=== PATIENT | male | born 1950 | race Caucasian/White ===

== ENCOUNTER 2016-09-15 20:44 | Inpatient (IN) ==
[2016-09-15 22:06] LABS: INR 1.1; Prothrombin Time 11.7 Seconds (9.4-12.1)
[2016-09-15 22:09] LABS: Activated Partial Thrombo Time 25.5 Seconds (26.0-36.0)
[2016-09-15 22:11] LABS: Basophils # 0.1 K/mcL (0.0-0.2); Basophils % 0.3 %; Eosinophils # 0.1 K/mcL (0.0-0.6); Eosinophils % 0.8 %; Hematocrit 38.6 % (37.5-50.1); Hemoglobin 12.9 g/dL (12.9-16.9); Immature Granulocytes % 3.9 % (0-4); Lymphocytes # 2.3 K/mcL (0.6-4.6); Lymphocytes % 12.4 %; Mean Corpuscular HGB Conc 33.4 g/dL (31.6-35.5); Mean Corpuscular Hemoglobin 31.4 pg (28.0-33.3); Mean Corpuscular Volume 93.9 fL (83.0-100.0); Mean Platelet Volume 10.3 fL (9.4-12.4); Monocytes # 1.4 K/mcL (0.0-1.3); Monocytes % 7.3 %; Neutrophils # 13.9 K/mcL (1.6-8.9); Platelet Count 282 K/mcL (140-400); Red Blood Count 4.11 M/mcL (4.19-5.50); Red Cell Distribution Width 12.6 % (11.5-14.5); Segmented Neutrophils % 75.3 %
[2016-09-15 22:14] LABS: BUN/Creatinine Ratio 24 (6-26); Blood Urea Nitrogen 35 mg/dL (8-26); Calcium 8.5 mg/dL (8.6-10.8); Carbon Dioxide 26 mEq/L (19-29); Chloride 100 mEq/L (98-109); Glucose 91 mg/dL (70-99); Osmolality,Calculated 292 (280-300); Potassium 3.5 mEq/L (3.5-4.5); Sodium 137 mEq/L (136-145); eGFR For African Americans 60 (> 60); eGFR For Non-African Americans 49 (> 60)
[2016-09-15 22:15] LABS: Ethanol < 10 mg/dL (0-10)
[2016-09-15] MEDS ORDERED: 0.9 % Sodium Chloride 1,000 ML IVC ONE (22:43)
[2016-09-15] MEDS ORDERED: Acetaminophen 325 MG TABLET PO ONE (22:44)
[2016-09-15 23:22] LABS: Bilirubin,Urine Negative (Negative); Blood,Urine Negative (Negative); Clarity,Urine Clear (Clear); Color,Urine Yellow (Yellow); Glucose,Urine (UA) Normal (Normal); Ketones,Urine Negative (Negative); Leukocyte Esterase,Urine Negative (Negative); Nitrite,Urine Negative (Negative); Protein,Urine 30 mg/dL (Neg-Trace); Specific Gravity,Urine 1.027 (1.010-1.025); Urobilinogen,Urine Normal (Normal)
[2016-09-15 23:24] LABS: Bacteria,Urine None Seen per hpf (None-Few); Hyaline Casts,Urine None Seen per lpf (None-Few); RBC,Urine 0-3 per hpf (0-3); Squamous Epithelial Cell,Urine Moderate per lpf (None-Few); WBC,Urine 0-3 per hpf (0-3)
[2016-09-16] MEDS ORDERED: CefTRIAXone 1,000 MG VIAL ONE (01:03)
[2016-09-16] MEDS ORDERED: 0.9 % Sodium Chloride Mini Bag 100 ML ONE (01:04)
[2016-09-16] MEDS ORDERED: 0.9 % Sodium Chloride 1,000 ML ONE (01:06)
[2016-09-16] MEDS ORDERED: Azithromycin 500 MG in D5% in Water 250 ML IVPB ONE (01:57)
[2016-09-16] MEDS ORDERED: 0.9 % Sodium Chloride 1,000 ML IVC SCH (02:00)
[2016-09-16] MEDS ORDERED: D5% in Water 250 ML ONE (02:40)
[2016-09-16] MEDS ORDERED: Azithromycin 500 MG VIAL IVPB ONE (02:40)
--- NOTE | 2016-09-16 04:40 | Emergency Department Note ---
START Narrative - START START: Patient checked out at the end of shift by Dr. Christina Mesa. [facility], had [facility] to [facility] transfer center. However, the [facility] doctor just called me back and was concerned about [facility]. Thought that he should stay here where he could potentially be evaluated by neurology and/or infectious disease. Patient has a low-grade temperature elevation with a leukocytosis and concern for some mental status changes. He had complained of a headache. CT was negative. On my evaluation at 0440, he is awake with minimal to no dysarthria. Answers questions appropriately. He is oriented. Says his headache "has pretty much gone away." Neck is supple without meningismus on my exam. I spoke with our hospitalist, who is accepted for admission.
--- NOTE | 2016-09-16 08:52 | Internal Med History&Physical ---
Date of Encounter: 09/16/16 Time of Encounter: 08:50 Assessment and Plan (1) COPD exacerbation Current visit: Yes Status: Acute Give [id number] nebulizer treatments. No significant chest wheezing I would hold off steroids for now. Reportedly patient was also confused yesterday will get outside records (2) Acute bronchitis Current visit: Yes Status: Acute Still has some greenish sputum production. We would Broaden antibiotic coverage with zosyn. Check sputum culture. Will also check stool for C diff given intermittent diarrhea. Qualifiers: Qualified Code(s): J20.9 - Acute bronchitis, unspecified (3) Metabolic encephalopathy Current visit: Yes Status: Acute Reportedly patient was confused with slurred speech yesterday. He was sent from the [place] for further evaluation of his neurological status. Suspect metabolic encephalopathy which may be related to underlying bronchitis versus pneumonia or medication induced like steroids. His blood pressure currently is 160 systolic to another possibility is hypertensive encephalopathy if his blood pressure was elevated at [facility] levels [facility] the [facility]. There is no meningeal signs on my exam neck is supple. He can touch his chest with his chin. Negative Kernig's and Brud[place]nisk[place] sign. CT scan of the head was unremarkable for any intracranial pathology. Patient still has leukocytosis and fever spikes. will broaden antibiotic coverage for his acute bronchitis to cover for pseudomonas and check sputum culture. I do not feel that we need to do a lumbar puncture. We check EEG. (4) CKD (chronic kidney disease) stage 3, GFR 30-59 ml/min Current visit: Yes Status: Acute Gentle hydration. Internal Medicine - H&P: HPI Chief complaint: confusion History of present illness: Mr. Colunga is a 66 year old male with a history of COPD not on home oxygen was admitted to the [facility] for 6 days for COPD exacerbation and acute bronchitis. He has been treated with IV antibiotics. Patient continues to have fever spikes and started having episodes of confusion and slurred speech souls transfer to other facility for further evaluation. My interview with the patient today he was alert and oriented times 4. He denies any neck pain or stiffness. No photophobia. No headache. No focal weakness tingling or numbness in any extremity facial symmetry or speech slurriness. He denies alcohol intake or illicit drugs. He has been covered throughout hospitalizations with antibiotics for community acquired pneumonia and continues to have fever spikes. He continues to have a greenish sputum production. Throughout hospitalization he also had intermittent loose stools. He denies any diarrhea currently no abdominal pain. No sick contacts or recent travel. No witnessed seizure. Past Med Surg Social Fam HX - Past Medical History Medical history: COPD, diabetes, GERD, hyperlipidemia, hypertension, renal disease Psychiatric history: no psych history - Social History Smoking Status: Current some day smoker Smokeless Tobacco Status: No Alcohol use: none Drug use: none Internal Medicine - H&P: Meds Acetaminophen [Tylenol] 500 mg PO Q6HR PRN 09/16/16 [History] Albuterol Neb [Proventil Neb] 2.5 mg IH Q4HR PRN 09/16/16 [History] Albuterol Sulfate [Albuterol Inhaler] 2 puff IH Q4HR PRN 09/16/16 [History] Allopurinol [Zyloprim 100 MG] 100 mg PO DAILY 09/16/16 [History] Amlodipine Besylate 5 mg PO DAILY 09/16/16 [History] Aspirin [Lo-Dose Aspirin EC] 81 mg PO DAILY 09/16/16 [History] Atenolol 100 mg PO BID 09/16/16 [History] Atorvastatin Calcium [Lipitor] 20 mg PO DAILY 09/16/16 [History] Azithromycin [Zithromax Tri-Jens] 500 mg PO DAILY 09/16/16 [History] Capsaicin [Arthritis Pain Relief] 1 appl TP DAILY PRN 09/16/16 [History] Cefdinir [Omnicef] 300 mg PO BID 09/16/16 [History] Cholecalciferol (D-3) [Vitamin D] 5,000 unit PO DAILY 09/16/16 [History] GuaiFENesin Liq [Robitussin Liq] 200 mg PO Q6HR PRN 09/16/16 [History] Lisinopril-HCTZ 20-12.5 [Prinzide 20-12.5] 2 tab PO DAILY 09/16/16 [History] [place]-3/Dha/Epa/Fish Oil [[place] 3 500 Softgel] 1 each PO DAILY 09/16/16 [History ] Pregabalin [Lyrica] 150 mg PO BID 09/16/16 [History] Sodium Bicarbonate 325 mg PO BID 09/16/16 [History] Tiotropium [Spiriva] 18 mcg IH 0700 09/16/16 [History] Allergies No Known Allergies Allergy (Verified 09/15/16 20:53) All Systems PM: A 10-system review of systems was performed and is negative for pertinent findings except as documented above in the HPI. Review of systems: 10 point ROS is negative except for HPI - Constitutional Vitals: Temp Pulse Resp BP Pulse Ox 98.1 F 77 16 165/81 93 09/16/16 06:39 09/16/16 06:39 09/16/16 06:39 09/16/16 06:39 09/16/16 06:39 Exam: Gen.: patient is alert oriented times 4 not in distress cardiac: Normal S1, S2, no additional sounds or murmurs chest: Slightly diminished air entry. expiratory wheezing Abdomen: Soft, no tenderness. No rebound lower extremity Lax calf muscles no swelling Neuro: no focal deficits. No meningeal signs. negative kernig's and brudiszniski signs Internal Med - H&P Results - Labs CBC & Chem 7: 09/15/16 21:45 09/15/16 21:45
[2016-09-16] MEDS ORDERED: amLODIPine 5 MG TABLET PO SCH (09:00)
[2016-09-16] MEDS: Piperacillin/Tazobactam 3.375 GM in D5% in Water (Mini-Bag+) 100 ML IVPB SCH ×2 (10:28→17:19)
--- NOTE | 2016-09-16 10:36 | Neurology - Consult Note ---
<Kody Rich - Last Filed: 09/16/16 11:19> Date of Encounter: 09/16/16 Time of Encounter: 10:20 Assessment and Plan (1) Metabolic encephalopathy Current Visit: Yes Status: Acute Not concerning for encephalitis at this time. Headache is mostly improved, no nuchal rigidity, speech is improved. Likely secondary to underlying infection. Source possibly multifactorial with symptoms of vomiting, diarrhea, productive cough, and findings of sinusitis in the left maxilla and right mastoid air cells on imagining. Consideration for hypertensive encephalopathy as well with elevated blood pressures. Patient being started on Zosyn. I do not feel that the patient needs an MRI at this time. Recommend medical supportive care and neurology will reevaluate in the AM for improvement. History of Present Illness Chief complaint: AMS HPI: Mr. Colunga is a 66 year old male with PMH of COPD, CKD, DM, HLD, and HTN who presents to [facility] for altered mental status, headache, and difficulty with speaking. He states that he was at home yesterday when his noticed that he was beginning to be slow with answering questions or responding in conversation as well as having a throbbing headache. Yesterday he reported having some generalized weakness and states he slept most of the day. He states that currently is headache has mostly resolved and he is feeling much improved since yesterday. Upon workup he was found to have an elevated WBC count of 18.5. He had a recent hospitalization at the [place] for COPD exacerbation and was treated with antibiotics, but he continues to have a cough productive of green sputum. He states that he had an episode of diarrhea yesterday and today as well as vomiting x 3 yesterday. He denies any blood in the vomit or his stools. He has been having intermittent fevers that have not been measured. He states his speech is back to baseline. He denies chest pain, shortness of breath, changes in vision, focal numbness or weakness. He denies alcohol and drug use. Past Med Surg Social Fam HX - Past Medical History Medical history: COPD, diabetes, GERD, hyperlipidemia, hypertension, renal disease Psychiatric history: no psych history - Social History Smoking Status: Current some day smoker Smokeless Tobacco Status: No Alcohol use: none Drug use: none Medications and Allergies Acetaminophen [Tylenol] 500 mg PO Q6HR PRN 09/16/16 [History] Albuterol Neb [Proventil Neb] 2.5 mg IH Q4HR PRN 09/16/16 [History] Albuterol Sulfate [Albuterol Inhaler] 2 puff IH Q4HR PRN 09/16/16 [History] Allopurinol [Zyloprim 100 MG] 100 mg PO DAILY 09/16/16 [History] Amlodipine Besylate 5 mg PO DAILY 09/16/16 [History] Aspirin [Lo-Dose Aspirin EC] 81 mg PO DAILY 09/16/16 [History] Atenolol 100 mg PO BID 09/16/16 [History] Atorvastatin Calcium [Lipitor] 20 mg PO DAILY 09/16/16 [History] Azithromycin [Zithromax Tri-Jens] 500 mg PO DAILY 09/16/16 [History] Capsaicin [Arthritis Pain Relief] 1 appl TP DAILY PRN 09/16/16 [History] Cefdinir [Omnicef] 300 mg PO BID 09/16/16 [History] Cholecalciferol (D-3) [Vitamin D] 5,000 unit PO DAILY 09/16/16 [History] GuaiFENesin Liq [Robitussin Liq] 200 mg PO Q6HR PRN 09/16/16 [History] Lisinopril-HCTZ 20-12.5 [Prinzide 20-12.5] 2 tab PO DAILY 09/16/16 [History] [place]-3/Dha/Epa/Fish Oil [[place] 3 500 Softgel] 1 each PO DAILY 09/16/16 [History ] Pregabalin [Lyrica] 150 mg PO BID 09/16/16 [History] Sodium Bicarbonate 325 mg PO BID 09/16/16 [History] Tiotropium [Spiriva] 18 mcg IH 0700 09/16/16 [History] Allergies No Known Allergies Allergy (Verified 09/15/16 20:53) All Systems: A 10-system review of systems was performed and is negative for pertinent findings except as documented above in the HPI. Review of Systems: Reviewed and otherwise negative other than as stated in HPI. Physical Examination - Vital Signs Vital Signs: Initial Vital Signs Temp Pulse Resp BP Pulse Ox 100.4 F H 89 18 152/126 96 09/15/16 20:45 09/15/16 20:45 09/15/16 20:45 09/15/16 20:45 09/15/16 20:45 - Constitutional General appearance: comfortable - Neurologic Sensorimotor examination: intact Detailed motor examination: grossly full strength in all extremities, full strength in all major muscle groups Motor examination - right side: 55: deltoids, biceps, triceps, wrist flexion, wrist extension, braille coder, hip flexors, tibialis Anterior, quadriceps, toe extension (EHL), plantarflexion Motor examination - left side: 55: deltoids, biceps, triceps, wrist flexion, wrist extension, hip flexors, braille coder, quadriceps, tibialis Anterior, toe extension (EHL), plantarflexion Detailed sensory examination: intact Reflex and gait examination: other (somewhat wobbly gait, but not overly concerning) Reflexes: Biceps: 2+, Triceps: 2+, Brachioradialis: 2+, Patella: 2+, Achilles: 2 + Mental Status Examination: awake, alert, oriented to person, oriented to place, oriented to time, follows commands appropriately, answers questions appropriately, no agnosia, no aphasia, no aproxia Cranial nerve examination: PERRL, EOMI, visual mederos intact, corneal reflexes brisk symmetrically, sensory to face intact, mastication intact, no facial asymmetry is present, no dysarthria, hearing is intact symmetrically, soft palate elevates bilaterally upon phonation, flexes SCM and trapezius muscles symmetrically with full power, tongue protrudes midline, no atrophy or facial fasiculations present Cerebellar examination: no dysmetria, performs finger to nose and heel to poole symmetrically without ataxia, no difficulty with rapid alternating movements Results - Laboratory Findings CBC and BMP: 09/15/16 21:45 09/15/16 21:45 Abnormal lab findings: Abnormal lab results WBC 18.5 K/mcL (4.3-11.1) H 09/15/16 21:45 RBC 4.11 M/mcL (4.19-5.50) L 09/15/16 21:45 Neutrophils # 13.9 K/mcL (1.6-8.9) H 09/15/16 21:45 Monocytes # 1.4 K/mcL (0.0-1.3) H 09/15/16 21:45 APTT 25.5 Seconds (26.0-36.0) L 09/15/16 21:45 BUN 35 mg/dL (8-26) H 09/15/16 21:45 Creatinine 1.44 mg/dL (0.72-1.25) H 09/15/16 21:45 Est GFR (Non-Af Amer) 49 (> 60) L 09/15/16 21:45 POC Glucose 98 (58-89) H 09/15/16 20:57 Calcium 8.5 mg/dL (8.6-10.8) L 09/15/16 21:45 Ur Specific [place] 1.027 (1.010-1.025) H 09/15/16 23:10 Urine Protein 30 mg/dL (Neg-Trace) H 09/15/16 23:10 Ur Squamous Epith Cells Moderate per lpf (None-Few) H 09/15/16 23:10 Consult Discharge Plan - Plan [facility] Provider[facility] - <TitaHelen - Last Filed: 09/16/16 15:33> Date of Encounter: 09/16/16 Time of Encounter: 15:27 History of Present Illness Chief complaint: AMS and balance difficulty HPI: I saw and examined the patient with the presence of Dr. Kody Rich. We reviewed medical history records and imaging studies together. I agree with his history taking, physical examination, assessment and plan. In summary this is a 66 year old man with COPD, CKD, DM, HTN who developed acute onset of confusion, headache, with breathing difficulty, elevated WBC, and impairment renal function. Symptoms significantly improved within 24 hours, as his medical conditions improving. He is 95% back to baseline. mentions that he has been having balance difficulty for about few weeks and he has had MRI of cervical and lumbar spine and is to see paid search specialist soon in [place]. His mental status examination improved to baseline. EEG showed mild background slowing. CT of head showed no acute intracranial abnormality. His symptoms of confusion likely related to onging medical condition, including pneumonia, renal insufficiency. No evidence of FORK ASSEMBLER infection. Will recommend continue medical and supportive care. WIll sign off at this time. Please call if any questions. All Systems: A 10-system review of systems was performed and is negative for pertinent findings except as documented above in the HPI. Physical Examination - Vital Signs Vital Signs: Initial Vital Signs Temp Pulse Resp BP Pulse Ox 100.4 F H 89 18 152/126 96 09/15/16 20:45 09/15/16 20:45 09/15/16 20:45 09/15/16 20:45 09/15/16 20:45 Results - Laboratory Findings CBC and BMP: 09/15/16 21:45 09/15/16 21:45 Abnormal lab findings: Abnormal lab results WBC 18.5 K/mcL (4.3-11.1) H 09/15/16 21:45 RBC 4.11 M/mcL (4.19-5.50) L 09/15/16 21:45 Neutrophils # 13.9 K/mcL (1.6-8.9) H 09/15/16 21:45 Monocytes # 1.4 K/mcL (0.0-1.3) H 09/15/16 21:45 APTT 25.5 Seconds (26.0-36.0) L 09/15/16 21:45 BUN 35 mg/dL (8-26) H 09/15/16 21:45 Creatinine 1.44 mg/dL (0.72-1.25) H 09/15/16 21:45 Est GFR (Non-Af Amer) 49 (> 60) L 09/15/16 21:45 Calcium 8.5 mg/dL (8.6-10.8) L 09/15/16 21:45 Ur Specific [place] 1.027 (1.010-1.025) H 09/15/16 23:10 Urine Protein 30 mg/dL (Neg-Trace) H 09/15/16 23:10 Ur Squamous Epith Cells Moderate per lpf (None-Few) H 09/15/16 23:10
[2016-09-16] MEDS: Ipratropium/Albuterol Neb 3 ML IH SCH ×3 (10:41→21:24)
[2016-09-16] MEDS: GuaiFENesin Liq 200 MG/10 ML UDC PO SCH ×2 (12:49→17:18)
[2016-09-16] MEDS ORDERED: amLODIPine 5 MG TABLET PO ONE (13:36)
--- NOTE | 2016-09-16 14:54 | EEG/EMG/Oth Biometrics Report ---
EEG Procedure Report Date of procedure: 09/16/16 EEG Procedure: Routine EEG Procedure Note: Report: This EEG was acquired with standard international 10-20 electrode placement system with EKG recording. The background activity during this EEG was replaced by a mixture of theta and alpha activity with best frequency up to 8 Hz. The background activity was reactive to eye openings. Sleep stages were characterized by presence of k-complexes, diffuse delta slowing and Vertex waves. There are no electricographic seizures identified during this tracing. There are no epileptiform discharges and focal slowing noted during this recording. Photic stimulation produced no abnormalities. HV not performed during this study. EKG tracing showed no significant cardiac dysarrhythmia. Impression: This is an abnormal EEG due to presence of mild to moderate diffuse background slowing. Clinical Correlation: This EEG is consistent with mild to moderate diffuse cerebral dysfunction that can be seen in patients with encephalopathy, metabolic/toxic, electrolyte derangement, or other causes. Clinical correlation suggested.
--- NOTE | 2016-09-16 18:43 | Electrocardiograph Report ---
[place] [id number] Test Date: 2016-09-15 Pat Name: Giovanni Colunga Department: 102 Room: 3A22 Gender: M Cell Tester: Arthur : 1950 Requested By: Geetha Villeda Order Number: [id number] Reading MD: Josse Oliveros MD Measurements Intervals [place] Rate: 80 P: 51 CO: 139 QRS: 11 QRSD: 86 T: 37 QT: 345 QTc: 380 Interpretive Statements SINUS RHYTHM Electronically Signed On 09-16-2016 18:41:16 EDT by Josse Oliveros MD
[2016-09-16 19:54] LABS: Amphetamine Screen,Urine Negative ng/mL (Cutoff=1000); Barbiturate Screen,Urine Negative ng/mL (Cutoff=200); Benzodiazepines Screen,Urine Negative ng/mL (Cutoff=200); Cannabinoid Screen,Urine Negative ng/mL (Cutoff = 50); Cocaine Screen,Urine Negative ng/mL (Cutoff= 300); Opiate Screen,Urine Negative ng/mL (Cutoff=300); Phencyclidine Screen,Urine Negative ng/mL (Cutoff=25)
[2016-09-17] MEDS: Piperacillin/Tazobactam 3.375 GM in D5% in Water (Mini-Bag+) 100 ML IVPB SCH ×3 (00:39→16:56)
[2016-09-17] MEDS: GuaiFENesin Liq 200 MG/10 ML UDC PO SCH ×4 (01:44→16:57)
[2016-09-17] MEDS: Ipratropium/Albuterol Neb 3 ML IH SCH ×4 (03:46→21:16)
[2016-09-17 05:10] LABS: Basophils % 0.2 %; Eosinophils # 0.3 K/mcL (0.0-0.6); Eosinophils % 1.8 %; Hemoglobin 11.7 g/dL (12.9-16.9); Immature Granulocytes % 1.8 % (0-4); Lymphocytes # 2.9 K/mcL (0.6-4.6); Lymphocytes % 17.2 %; Mean Corpuscular HGB Conc 33.4 g/dL (31.6-35.5); Mean Corpuscular Hemoglobin 31.4 pg (28.0-33.3); Mean Corpuscular Volume 93.8 fL (83.0-100.0); Mean Platelet Volume 10.9 fL (9.4-12.4); Monocytes # 1.4 K/mcL (0.0-1.3); Monocytes % 8.1 %; Platelet Count 251 K/mcL (140-400); Red Blood Count 3.73 M/mcL (4.19-5.50); Red Cell Distribution Width 12.4 % (11.5-14.5); Segmented Neutrophils % 70.9 %
[2016-09-17 05:30] LABS: BUN/Creatinine Ratio 19 (6-26); Blood Urea Nitrogen 26 mg/dL (8-26); Calcium 8.2 mg/dL (8.6-10.8); Carbon Dioxide 23 mEq/L (19-29); Chloride 105 mEq/L (98-109); Glucose 90 mg/dL (70-99); Magnesium 1.9 mg/dL (1.6-2.6); Osmolality,Calculated 290 (280-300); Potassium 3.8 mEq/L (3.5-4.5); Sodium 138 mEq/L (136-145); eGFR For African Americans > 60 (> 60); eGFR For Non-African Americans 51 (> 60)
[2016-09-17 05:48] LABS: C-Reactive Protein 92 mg/L (Less than 5)
[2016-09-17] MEDS: amLODIPine 5 MG TABLET PO SCH (09:18)
--- NOTE | 2016-09-17 11:20 | Internal Med Progress Note ---
Date of Encounter: 09/17/16 Time of Encounter: 11:17 - Assessment and plan (1) COPD exacerbation Current Visit: Yes Status: Acute Assessment and plan: Improving continue nebulizer treatment. Patient does not need steroids. (2) Acute bronchitis Current Visit: Yes Status: Acute Assessment and plan: Continue Zosyn. Still has low-grade fever however improving. Await sputum culture. Qualifiers: Qualified Code(s): J20.9 - Acute bronchitis, unspecified (3) Metabolic encephalopathy Current Visit: Yes Status: Acute Assessment and plan: Patient currently is alert oriented times 4. No meningeal signs. No headache or confusion. EEG suggestive of metabolic encephalopathy. Neurology service are following the patient and not think patient needs MRI or LP. Will watch patient one more day in hospital (4) CKD (chronic kidney disease) stage 3, GFR 30-59 ml/min Current Visit: Yes Status: Acute Assessment and plan: Stable (5) Hypertension Current Visit: Yes Status: Acute Assessment and plan: Medications adjusted Norvasc increased to 10 mg blood pressure currently fairly well-controlled Qualifiers: Qualified Code(s): I10 - Essential (primary) hypertension - Subjective Interval history: Patient seen and examined. He is alert oriented times 4. Denies any headache neck pain or stiffness. Denies any focal weakness. He also notices improvement in respiratory status. Scanned sputum production yellowish color. He continues to have low-grade fevers but overall improving - Constitutional Vitals: Temp Pulse Resp BP Pulse Ox 98.7 F 62 18 127/51 96 09/17/16 10:49 09/17/16 10:49 09/17/16 10:51 09/17/16 10:49 09/17/16 10:51 Exam: Gen.: patient is alert oriented times 3 not in distress. Cardiac: normal S1 S2 no additional sounds or murmurs chest: fair air entry. scattred expiratory wheeze. No crackles or bronchial breathing. abdomen: soft nontender nondistended normal bowel sounds neuro: no focal deficit Neck: No stiffness, negative meningeal signs Internal Medicine: Result - Labs CBC & Chem 7: 09/17/16 03:46 09/17/16 03:46 Labs: Short CBC 09/17/16 Range/Units 03:46 WBC 16.9 H (4.3-11.1) K/mcL Hgb 11.7 L (12.9-16.9) g/dL Hct 35.0 L (37.5-50.1) % Plt Count 251 (140-400) K/mcL Neutrophils # 12.0 H (1.6-8.9) K/mcL BMP 09/17/16 03:46 Sodium 138 Potassium 3.8 Chloride 105 Carbon Dioxide 23 BUN 26 Creatinine 1.39 H Glucose 90 Calcium 8.2 L - ABG Interpretation ABG results: PT/INR, D-dimer PT 11.7 Seconds (9.4-12.1) 09/15/16 21:45 Consult Discharge Plan - Plan Referrals: [facility] [Outside]
--- NOTE | 2016-09-17 14:10 | Emergency Department Note ---
Disposition Clinical Impression: Nausea, Generalized weakness, Transient confusion, Fever, Leukocytosis, unspecified, Acute on chronic renal insufficiency, Dehydration, CKD stage 3 secondary to diabetes Hypertension Qualifiers: Qualified Code(s): I10 - Disposition: Admitted As Inpatient Altered Mental Status HPI - General Chief Complaint: ED Nausea/Vomiting/Diarrhea Stated Complaint: Unsteady Gait Time Seen by Provider: 09/15/16 20:48 Source: patient, family, EMS, other (accompanied to eD by his friend) Mode of arrival: EMS Limitations: no limitations Nursing Notes Reviewed: Yes Vital Signs Reviewed: Yes - History of Present Illness HPI Narrative: Pt is a 66 yo wm, sent to us by EMS from the [place] for evaluation of AMS. [facility] and according to paperwork sent with patient, he was treated for bacterial pneumonia, AECOPD, malignant mets to lung, N/V. Pt reports that he has not been feeling well since arriving home from the hospital. Pt currently on zithromax and cefdinir since leaving hospital. Pt reports overwhelming gen weakness, and "I have just been sleeping since I got home". Pt with mild confusion that he feels has been present since he arrived home from the hospital. No recent MS changes in last 24 hours. Pt c/ o mild nausea and dec appetite/PO intake. Pt c/o ongoing subj fevers and chills. Pt with prod cough with yellow sputum, but no resp distress on arrival. Pt sent to us for altered mental status, and ?? expressive aphasia. Friend who is with patient states that he is concerned that he is not feeling well, and "not acting the same". Pt is awake, alert with GCS=15, appears very tired and dehydrated, but answers questions appropriately and speech clear. No focal deficits. Pt able to answer questions without difficulty, and describes his course since leaving hospital. Pt not a great historian regarding his recent hospitalization, is not aware of any cancer diagnosis, and unclear as to why he was DC'd from hospital while still not feeling well. Pt denies any CP/press, no SOB, but has occasional prod cough at bedside. Pt c/ o mild diffuse frontal MANZO, but states he has had this since leaving the hospital. - Related Data Home Medications Medication Instructions Recorded Confirmed Acetaminophen [Tylenol] 500 mg PO Q6HR PRN 09/16/16 09/16/16 Albuterol Neb [Proventil Neb] 2.5 mg IH Q4HR PRN 09/16/16 09/16/16 Albuterol Sulfate [Albuterol 2 puff IH Q4HR PRN 09/16/16 09/16/16 Inhaler] Allopurinol [Zyloprim 100 MG] 100 mg PO DAILY 09/16/16 09/16/16 Amlodipine Besylate 5 mg PO DAILY 09/16/16 09/16/16 Aspirin [Lo-Dose Aspirin EC] 81 mg PO DAILY 09/16/16 09/16/16 Atenolol 100 mg PO BID 09/16/16 09/16/16 Atorvastatin Calcium [Lipitor] 20 mg PO DAILY 09/16/16 09/16/16 Azithromycin [Zithromax Tri-Jens] 500 mg PO DAILY 09/16/16 09/16/16 Capsaicin [Arthritis Pain Relief] 1 appl TP DAILY PRN 09/16/16 09/16/16 Cefdinir [Omnicef] 300 mg PO BID 09/16/16 09/16/16 Cholecalciferol (D-3) [Vitamin D] 5,000 unit PO DAILY 09/16/16 09/16/16 GuaiFENesin Liq [Robitussin Liq] 200 mg PO Q6HR PRN 09/16/16 09/16/16 Lisinopril-HCTZ 20-12.5 [Prinzide 2 tab PO DAILY 09/16/16 09/16/16 20-12.5] [place]-3/Dha/Epa/Fish Oil [[place] 3 1 each PO DAILY 09/16/16 09/16/16 500 Softgel] Pregabalin [Lyrica] 150 mg PO BID 09/16/16 09/16/16 Sodium Bicarbonate 325 mg PO BID 09/16/16 09/16/16 Tiotropium [Spiriva] 18 mcg IH 0700 09/16/16 09/16/16 Allergies Allergy/AdvReac Type Severity Reaction Status Date / Time No Known Allergies Allergy Verified 09/15/16 20:53 All systems ED: reviewed and negative except as stated. Constitutional: Reports: as per HPI, fever, weakness. Denies: chills, night sweats Eyes: Reports: as per HPI. Denies: vision change ENT ED: Reports: as per HPI. Denies: ear pain, throat pain, congestion, dysphagia Cardiovascular: Reports: as per HPI. Denies: chest pain, palpitations, dyspnea on exertion, edema, syncope, paroxysmal nocturnal dyspnea Respiratory: Reports: as per HPI, cough, dyspnea, wheezes, sputum production Gastrointestinal: Reports: as per HPI, nausea, vomiting. Denies: abdominal pain , diarrhea, constipation, hematemesis Genitourinary: Reports: as per HPI. Denies: urgency, dysuria Musculoskeletal: Reports: as per HPI. Denies: back pain, neck pain Integumentary: Reports: as per HPI. Denies: rash Neurological: Reports: as per HPI, headache, weakness, confusion. Denies: numbness, paresthesias, abnormal gait, vertigo Psychiatric: Reports: as per HPI. Denies: anxiety, depression Endocrine: Reports: as per HPI Hematological/Lymphatic: Reports: as per HPI Allergic/Immunologic: Reports: as per HPI Past Medical History - Past Medical History Medical history: Reports: COPD, diabetes, GERD, hyperlipidemia, hypertension, renal disease Psychiatric history: Reports: no psych history - Social History Smoking Status: Current some day smoker Smokeless Tobacco Status: No Alcohol use: Reports: none Drug use: Reports: none Physical Exam - General Limitations: no limitations General appearance: alert, in no apparent distress, other (appears tired and chronically ill, but NAD, no rsp distress; A&O x 4) - Head Head exam: atraumatic, normocephalic - Eye Eye exam: Present: normal appearance, PERRL, EOMI. Absent: scleral icterus - ENT ENT exam: normal exam, normal oropharynx, mucous membranes dry, TM's normal bilaterally - Neck Neck exam: Present: normal inspection, full ROM. Absent: meningismus, lymphadenopathy - Chest Chest inspection: Present: normal inspection, symmetric chest wall rise. Absent : tenderness, rash - Respiratory Respiratory exam: Present: wheezes. Absent: respiratory distress, stridor, accessory muscle use, prolonged expiratory phase - Cardiovascular Cardiovascular exam: Present: regular rate, normal rhythm, normal heart sounds - Abdominal Exam Abdominal exam: Present: soft, Non-Tender, normal bowel sounds - Extremities Exam Extremities exam: Present: normal inspection, full ROM, normal capillary refill. Absent: tenderness, pedal edema - Back Exam Back exam: Present: normal inspection, full ROM. Absent: tenderness, CVA tenderness (R), CVA tenderness (L), paraspinal tenderness, vertebral tenderness , rashes - Neurological Exam Neurological exam: Present: alert, oriented X3, CN II-XII intact, normal gait, other (pt with clear speech and no focal neuro deficits on arrival, NIHSS=0 on arrival to ED). Absent: motor sensory deficit, reflexes normal - Psychiatric Psychiatric exam: Present: normal mood, flat affect - Skin Skin exam: Present: warm, dry. Absent: diaphoresis, pallor Course Vital Signs Temperature 100.4 F H 09/15/16 20:45 Pulse Rate 89 09/15/16 20:45 Respiratory Rate 18 09/15/16 20:45 Blood Pressure 152/126 09/15/16 20:45 O2 Sat by Pulse Oximetry 96 09/15/16 20:45 Temperature 98.7 F 09/17/16 10:49 Pulse Rate 62 09/17/16 10:49 Respiratory Rate 18 09/17/16 10:51 Blood Pressure 127/51 09/17/16 10:49 O2 Sat by Pulse Oximetry 96 09/17/16 10:51 Oxygen Delivery Oxygen Delivery Room Air Altered Mental Status - MDM Narrative Medical decision making narrative: Pt is a 66 yo wm, who was sent to us by [facility] with concerns for AMS changes. Pt just recently DC'd from for pneumonia, AECOPD, N/V, and also hx CKD. Pt paperwork listed "malignant mets to lung" as a diagnosis, but pt not aware of this diagnosis. Pt on arrival with GCS=15, clear speech A&Ox4, and no focal deficits on exam. Pt c/o not feeling well since time fo DC home, and reports incr fatigue/malaise , and mainly "sleeping" since he arrived home. Pt with ongoing nausea and dec appetite. Pt taking cefdinir/zithromax at home for reported pulmonary infection. No signs of resp distress on arrival. No acute neurologic findings [place] rrival to ED. No c/o dizziness/vertigo. Workup in ED shows CXR with L pulm nodule, when discussed with pt, [facility] with [facility]. No infiltrate. CT brain wnl, chronic mastoiditis. On re-eval, pt with no erythema/TTP of mastoid b/l. Labs show leukocytosis with L shift, and mild ZULLY (hx CKD, unclear baseline). Rapid flu neg, sputum cx sent. Pt given IVF and follwoing hydration pt reported feeling "much better" and Manzo resolved. Remainder of pt's labs unremarkable. After re-evaluating pt and speaking to him about admission to the hospital, as he is not doing well at home, and currently at hospital for CP. Pt requesting transfer to [place] for admission. I feel this is appropriate, and better continuity of care for the pt. Pt has been hemodynamically stable throughout ED course. Initially hypertensive on arrival, but resolved after inital BP checks. MANZO resolved at this time, Pt resting comfortable. Friend at bedside feels he is "much better" and at his baseline MS level. Feels he is feeling much better after IVF's. Have filed out transfer paperwork and faxed to [place] for possible transfer for admission. Have covered pt with antibx IV here in ED. Also paged hospitalist for possible admission if [facility] refuses pt. Signed pt out to Dr. Hoyt, pending acceptance and transfer to [place] hospital. Pt in stabel condition at time of signout. - Medical Records Medical records reviewed: Yes I reviewed the patient's medical records. - Lab Data Lab results reviewed: Yes I reviewed the patient's lab results. Result diagrams: 09/17/16 03:46 09/17/16 03:46 Lab Results 09/15/16 09/15/16 09/15/16 Range/Units 20:57 21:45 21:45 WBC 18.5 H (4.3-11.1) K/mcL RBC 4.11 L (4.19-5.50) M/mcL Hgb 12.9 (12.9-16.9) g/dL Hct 38.6 (37.5-50.1) % MCV 93.9 (83.0-100.0) fL MCH 31.4 (28.0-33.3) pg MCHC 33.4 (31.6-35.5) g/dL RDW 12.6 (11.5-14.5) % Plt Count 282 (140-400) K/mcL MPV 10.3 (9.4-12.4) fL Immature Gran % 3.9 (0-4) % Seg Neutrophils % 75.3 % Lymphocytes % 12.4 % Monocytes % 7.3 % Eosinophils % 0.8 % Basophils % 0.3 % Neutrophils # 13.9 H (1.6-8.9) K/mcL Lymphocytes # 2.3 (0.6-4.6) K/mcL Monocytes # 1.4 H (0.0-1.3) K/mcL Eosinophils # 0.1 (0.0-0.6) K/mcL Basophils # 0.1 (0.0-0.2) K/mcL PT 11.7 (9.4-12.1) Seconds INR 1.1 APTT 25.5 L (26.0-36.0) Seconds Sodium (136-145) mEq/L Potassium (3.5-4.5) mEq/L Chloride (98-109) mEq/L Carbon Dioxide (19-29) mEq/L BUN (8-26) mg/dL Creatinine (0.72-1.25) mg/dL Est GFR ( Amer) (> 60) Est GFR (Non-Af Amer) (> 60) BUN/Creatinine Ratio (6-26) Glucose (70-99) mg/dL POC Glucose 98 H (58-89) Calculated Osmolality (280-300) Calcium (8.6-10.8) mg/dL Troponin I (0-0.03) ng/mL Urine Color (Yellow) Urine Clarity (Clear) Urine pH (5.0-8.0) pH Units Ur Specific [place] (1.010-1.025) Urine Protein (Neg-Trace) mg/dL Urine Glucose (UA) (Normal) mg/dL Urine Ketones (Negative) mg/dL Urine Blood (Negative) Urine Nitrite (Negative) Urine Bilirubin (Negative) Urine Urobilinogen (Normal) mg/dL Ur Leukocyte Esterase (Negative) Urine Microscopic RBC (0-3) per hpf Urine Microscopic WBC (0-3) per hpf Ur Squamous Epith Cells (None-Few) per lpf Urine Bacteria (None-Few) per hpf Hyaline Casts (None-Few) per lpf Ur Culture Indicated? (NO) Ethyl Alcohol (0-10) mg/dL 09/15/16 09/15/16 09/15/16 Range/Units 21:45 21:45 23:10 WBC (4.3-11.1) K/mcL RBC (4.19-5.50) M/mcL Hgb (12.9-16.9) g/dL Hct (37.5-50.1) % MCV (83.0-100.0) fL MCH (28.0-33.3) pg MCHC (31.6-35.5) g/dL RDW (11.5-14.5) % Plt Count (140-400) K/mcL MPV (9.4-12.4) fL Immature Gran % (0-4) % Seg Neutrophils % % Lymphocytes % % Monocytes % % Eosinophils % % Basophils % % Neutrophils # (1.6-8.9) K/mcL Lymphocytes # (0.6-4.6) K/mcL Monocytes # (0.0-1.3) K/mcL Eosinophils # (0.0-0.6) K/mcL Basophils # (0.0-0.2) K/mcL PT (9.4-12.1) Seconds INR APTT (26.0-36.0) Seconds Sodium 137 (136-145) mEq/L Potassium 3.5 (3.5-4.5) mEq/L Chloride 100 (98-109) mEq/L Carbon Dioxide 26 (19-29) mEq/L BUN 35 H (8-26) mg/dL Creatinine 1.44 H (0.72-1.25) mg/dL Est GFR ( Amer) 60 (> 60) Est GFR (Non-Af Amer) 49 L (> 60) BUN/Creatinine Ratio 24 (6-26) Glucose 91 (70-99) mg/dL POC Glucose (58-89) Calculated Osmolality 292 (280-300) Calcium 8.5 L (8.6-10.8) mg/dL Troponin I 0.00 (0-0.03) ng/mL Urine Color Yellow (Yellow) Urine Clarity Clear (Clear) Urine pH 6.0 (5.0-8.0) pH Units Ur Specific [place] 1.027 H (1.010-1.025) Urine Protein 30 H (Neg-Trace) mg/dL Urine Glucose (UA) Normal (Normal) mg/dL Urine Ketones Negative (Negative) mg/dL Urine Blood Negative (Negative) Urine Nitrite Negative (Negative) Urine Bilirubin Negative (Negative) Urine Urobilinogen Normal (Normal) mg/dL Ur Leukocyte Esterase Negative (Negative) Urine Microscopic RBC 0-3 (0-3) per hpf Urine Microscopic WBC 0-3 (0-3) per hpf Ur Squamous Epith Cells Moderate H (None-Few) per lpf Urine Bacteria None Seen (None-Few) per hpf Hyaline Casts None Seen (None-Few) per lpf Ur Culture Indicated? NO (NO) Ethyl Alcohol < 10 (0-10) mg/dL - Radiology Data Radiology results reviewed: Yes I reviewed the patient's radiology results. - EKG Data EKG attestation: Yes I reviewed and interpreted this EKG. EKG results narrative: EKG shows a NSR at 80 bpm, no acute changes TPA Checklist - LKW: 3-4.5 hrs Add. Contraindications Patient/family understanding: The patient/family members have been counseled and understood the risk, benefit , and alternatives of treatment.
[2016-09-17] MEDS ORDERED: Acetaminophen 325 MG TABLET PO ONE (19:36)
[2016-09-18] MEDS: Piperacillin/Tazobactam 3.375 GM in D5% in Water (Mini-Bag+) 100 ML IVPB SCH ×2 (00:28→08:51)
[2016-09-18] MEDS: Ipratropium/Albuterol Neb 3 ML IH SCH ×2 (03:33→10:51)
[2016-09-18 04:06] LABS: Basophils % 0.2 %; Eosinophils # 0.3 K/mcL (0.0-0.6); Eosinophils % 2.2 %; Hematocrit 36.7 % (37.5-50.1); Immature Granulocytes % 1.2 % (0-4); Lymphocytes # 3.2 K/mcL (0.6-4.6); Lymphocytes % 21.3 %; Mean Corpuscular HGB Conc 32.7 g/dL (31.6-35.5); Mean Corpuscular Hemoglobin 30.7 pg (28.0-33.3); Mean Corpuscular Volume 93.9 fL (83.0-100.0); Mean Platelet Volume 10.3 fL (9.4-12.4); Monocytes # 1.4 K/mcL (0.0-1.3); Monocytes % 9.1 %; Neutrophils # 10.1 K/mcL (1.6-8.9); Platelet Count 227 K/mcL (140-400); Red Blood Count 3.91 M/mcL (4.19-5.50); Red Cell Distribution Width 12.5 % (11.5-14.5)
[2016-09-18 04:40] LABS: Calcium 8.5 mg/dL (8.6-10.8); Magnesium 1.9 mg/dL (1.6-2.6); Potassium 3.9 mEq/L (3.5-4.5)
[2016-09-18] MEDS ORDERED: Albuterol 2.5 MG/3 ML NEBULIZER IH PRN (07:35)
--- NOTE | 2016-09-18 08:34 | Internal Med Progress Note ---
Date of Encounter: 09/18/16 Time of Encounter: 08:34 - Constitutional Vitals: Temp Pulse Resp BP Pulse Ox 98.3 F 55 16 182/82 95 09/18/16 06:36 09/18/16 06:36 09/18/16 06:36 09/18/16 06:36 09/18/16 06:36 Internal Medicine: Result - Labs CBC & Chem 7: 09/18/16 03:53 09/18/16 03:53 Labs: Short CBC 09/18/16 Range/Units 03:53 WBC 15.2 H (4.3-11.1) K/mcL Hgb 12.0 L (12.9-16.9) g/dL Hct 36.7 L (37.5-50.1) % Plt Count 227 (140-400) K/mcL Neutrophils # 10.1 H (1.6-8.9) K/mcL BMP 09/18/16 03:53 Sodium 140 Potassium 3.9 Chloride 108 Carbon Dioxide 23 BUN 23 Creatinine 1.44 H Glucose 91 Calcium 8.5 L - ABG Interpretation ABG results: PT/INR, D-dimer PT 11.7 Seconds (9.4-12.1) 09/15/16 21:45 Consult Discharge Plan - Plan Referrals: [facility] [Outside]
[2016-09-18] MEDS: amLODIPine 5 MG TABLET PO SCH (08:50)
[2016-09-18] MEDS ORDERED: Pregabalin 75 MG CAPSULE PO SCH (09:00)
[2016-09-18] MEDS ORDERED: Aspirin Enteric Coated 81 MG Tablet PO SCH (09:00)
[2016-09-18] MEDS ORDERED: Cholecalciferol (D-3) 1,000 UNIT TABLET PO SCH (09:00)
--- NOTE | 2016-09-18 09:27 | Discharge Summary ---
Date of Encounter: 09/18/16 Time of Encounter: 09:27 - Discharge Diagnosis (1) COPD exacerbation Priority: Primary Status: Resolved (2) Acute bronchitis Priority: Primary Status: Acute Qualifiers: Bronchitis organism: unspecified organism Qualified Code(s): J20.9 - Acute bronchitis, unspecified (3) Metabolic encephalopathy Priority: Primary Status: Resolved (4) CKD stage 3 secondary to diabetes Priority: Secondary Status: Chronic (5) Hypertension Priority: Secondary Status: Chronic Qualifiers: Hypertension type: essential hypertension Qualified Code(s): I10 - Essential (primary) hypertension (6) Generalized weakness Priority: Primary Status: Acute - Discharge Medications Prescriptions: Cefdinir [Omnicef] 300 mg PO BID #10 capsule Home Medications: Acetaminophen [Tylenol] 500 mg PO Q6HR PRN 09/16/16 [History] Albuterol Neb [Proventil Neb] 2.5 mg IH Q4HR PRN 09/16/16 [History] Albuterol Sulfate [Albuterol Inhaler] 2 puff IH Q4HR PRN 09/16/16 [History] Allopurinol [Zyloprim 100 MG] 100 mg PO DAILY 09/16/16 [History] Amlodipine Besylate 5 mg PO DAILY 09/16/16 [History] Aspirin [Lo-Dose Aspirin EC] 81 mg PO DAILY 09/16/16 [History] Atenolol 100 mg PO BID 09/16/16 [History] Atorvastatin Calcium [Lipitor] 20 mg PO DAILY 09/16/16 [History] Azithromycin [Zithromax Tri-Jens] 500 mg PO DAILY 09/16/16 [History] Capsaicin [Arthritis Pain Relief] 1 appl TP DAILY PRN 09/16/16 [History] Cholecalciferol (D-3) [Vitamin D] 5,000 unit PO DAILY 09/16/16 [History] GuaiFENesin Liq [Robitussin Liq] 200 mg PO Q6HR PRN 09/16/16 [History] Lisinopril-HCTZ 20-12.5 [Prinzide 20-12.5] 2 tab PO DAILY 09/16/16 [History] [place]-3/Dha/Epa/Fish Oil [[place] 3 500 Softgel] 1 each PO DAILY 09/16/16 [History ] Pregabalin [Lyrica] 150 mg PO BID 09/16/16 [History] Sodium Bicarbonate 325 mg PO BID 09/16/16 [History] Tiotropium [Spiriva] 18 mcg IH 0700 09/16/16 [History] Cefdinir [Omnicef] 300 mg PO BID #10 capsule 09/18/16 [Rx] Allergies/Adverse Reactions: Allergies No Known Allergies Allergy (Verified 09/15/16 20:53) Date of admission: 09/16/16 08:36 [facility] Consults: 09/16/16 09:18 Consult to Neurology [CONS] Routine Consulting Provider: [facility] Reason for Consult: confusion slurred speech, headace Call Completed: No 09/16/16 14:28 Consult to Interpret Exam [CONS] Routine Consulting Provider: Helen Rivers Consult to Interpret Exam: Interpret EEG Discharging clinician: Kar Blackwell Anticipated date of discharge: 09/18/16 - Patient Status Disposition: Home, Self-Care Condition: Fair Functional capacity at discharge: independent ambulation Overall status at discharge: patient is back to baseline - Discharge Instructions Instructions: Chronic Obstructive Pulmonary Disease (DC) Follow Up With: [facility] [Outside] Forms: ED Satisfaction Letter Additional Instructions: [facility] IN [facility] W[facility], CHECK CBC WITH PCP - Diet and Activity Activity: resume usual activities as tolerated Diet: low fat, low cholesterol, low salt diet Interval History: See below Hospital course: Mr. Colunga is a 66 year old male with medical history of HTN, COPD, DM, HLD, Lung nodules, CKD III he was recently admitted at the [facility] for management of pneumonia, and discharged home on antibiotcs 09/14 he represented here due to transient alteration in mental status, and weakness He did not have any focal neurologic signs, nor meningeal signs Work up significant for mild dehydration, uncontrolled blood pressures, creatinine at baseline, leukocytosis with left shift. CXR was unremarkable for infiltrates, Head Ct was unremarkable, he had an EEG that showed encephalopathy , possibly metabolic Patient was reviewed by neurology He is seen and evaluated at bedside today he reports he has returned to his baseline, his headaches hasve resolved and he will like to be discharged home Flu swab was negative Sputum culture is negative without any growth Patient is discharged to continue same antibiotics and home medications Follow up with PCP at the [facility] for repeat CBC, monitoring /surveillance of lung nodules and medication titration Smoking cessation counselling done Plan of care discussed, verbalized understanding Time spent discussing smoking cessation with patient: 3 to 10 minutes (3 minutes spent on tobacco cessation counselling) - Time Spent with Patient Total time spent providing and/or coordinating discharge services: Less than 30 minutes - Constitutional Vitals: Temp Pulse Resp BP Pulse Ox 98.3 F 55 16 182/82 95 09/18/16 06:36 09/18/16 06:36 09/18/16 06:36 09/18/16 06:36 09/18/16 06:36 General appearance: Present: A&O X 3, pleasant, no acute distress - Head Head exam: Present: atraumatic, normocephalic - Eye Eye exam: Present: PERRL, conjuntiva pink, sclera anicteric Pupils: Present: PERRL - Neck Neck exam general surgery: Present: supple, trachea midline. Absent: lymphadenopathy - Respiratory Respiratory exam: Present: CTAB. Absent: accessory muscle use, rales, rhonchi, wheezes - Cardiovascular Cardiovascular exam: Present: RRR, +S1, +S2. Absent: diastolic murmur, gallop, rubs, systolic murmur - GI/Abdominal GI/Abdominal exam: Present: normal bowel sounds, soft, no peritoneal signs. Absent: distended, tenderness - Extremities Exam Extremities exam: Present: warm, radial pulses palpable and symetrical. Absent : calf tenderness, cyanotic, pedal edema - Neurological Exam Neurological exam: Present: alert, CN II-XII intact, oriented X3, no focal deficits. Absent: pronater drift, facial droop, speech deficit - Skin Skin exam: Present: dry, intact
[2016-09-18] MEDS ORDERED: Lisinopril-HCTZ 20-12.5mg TABLET PO ONE (09:30)
[2016-09-18 11:00] VITALS: BP 140/71
[2016-09-19] MEDS ORDERED: Tiotropium 18 MCG inhalation IH SCH (07:00)
== END 2016-09-18 12:27 | disposition home or self-care (01) | DRG 190 ==
LOC: EMEROO 20:44 → 3ANU 20:44
PROVIDERS: ADMIT Internal Medicine; ATTEND Internal Medicine